=== PATIENT | female | born 1955 | race Caucasian/White ===

== ENCOUNTER 2018-05-07 10:18 | Emergency (ER) | payer MEDICARE, MEDICAID ==
[~2018-05-07] VITALS: Ht 170.2 cm; Wt 61.4 kg
[~2018-05-07 10:18] MED LIST: ACET325C PO; CALC-729 PO; CRAN3875 PO; DOCU100C41 PO; DULR RC; LEVO25TA7 PO; MAGN400O6 PO; MULT-1085 PO; POLY17PO10 PO; RANI-366 PO; SIME125C77 PO; VITC500T PO; [UNRECOGNIZED DRUG - CODE] PO; [UNRECOGNIZED DRUG - CODE] PO
[2018-05-07] MEDS ORDERED: LIDOcaine 1%/PF 5ML 10 MG/ML VIAL ONE (14:09)
[2018-05-07] MEDS ORDERED: iohexol 300 MG/1 ML 50ml polymer ONE (14:09)
[2018-05-07 17:00] VITALS: BP 125/67
== END 2018-05-07 17:50 | disposition home or self-care (01) ==
LOC: ER 10:18
DX: K94.29 Other complications of gastrostomy (principal); F12.90 Cannabis use, unspecified, uncomplicated; Z98.890 Other specified postprocedural states; Z88.0 Allergy status to penicillin; Z79.899 Other long term (current) drug therapy
CPT/HCPCS: 49450; 99284; A6449; B4088; C1729; J2001; Q9967

== ENCOUNTER 2018-05-11 12:45 | Inpatient (IN) | payer MEDICARE, MEDICAID ==
[~2018-05-11] VITALS: Ht 162.6 cm; Wt 59.1 kg
[2018-05-11 13:59] LABS: BASOPHILS # (AUTO) 0.1 X10'3 (0-0.2); BASOPHILS % (AUTO) 0.6 % (0-1); EOSINOPHILS # (AUTO) 0.3 X10'3 (0-0.9); EOSINOPHILS % (AUTO) 2.8 % (0-6); HEMATOCRIT 27.3 % (35.0-45.0); HEMOGLOBIN 9.2 g/dl (12.0-16.0); LYMPHOCYTES # (AUTO) 1.5 X10'3 (1.1-4.8); LYMPHOCYTES % (AUTO) 14.8 % (21-51); MEAN CORPUSCULAR HEMOGLOBIN 30.6 PG (27.0-31.0); MEAN CORPUSCULAR HGB CONC 33.7 % (33.0-36.5); MEAN PLATELET VOLUME 7.1 FL (7.4-10.4); MONOCYTES # (AUTO) 0.7 X10'3 (0-0.9); MONOCYTES % (AUTO) 6.4 % (2-12); NEUTROPHILS # (AUTO) 7.7 X10'3 (1.8-7.7); NEUTROPHILS % (AUTO) 75.4 % (42-75); PLATELET COUNT 244 X10'3 (140-440); RED CELL DISTRIBUTION WIDTH 16.9 % (11.5-14.5); WHITE BLOOD COUNT 10.2 X10'3 (4.5-11.0)
[2018-05-11 14:09] LABS: INR 1.1 INR; PARTIAL THROMBOPLASTIN TIME 31 SECONDS (22-32); PROTHROMBIN TIME 11.7 SECONDS (9.0-12.0)
[2018-05-11 14:15] LABS: ALANINE AMINOTRANSFERASE 19 U/L (12-78); ALBUMIN 2.4 G/DL (3.4-5.0); ALBUMIN/GLOBULIN RATIO 0.5 (1.1-1.5); ALKALINE PHOSPHATASE 73 IU/L (46-116); ANION GAP 8 (8-16); ASPARTATE AMINO TRANSFERASE 14 U/L (10-37); BILIRUBIN,TOTAL 0.4 MG/DL (0.1-1.0); BLOOD UREA NITROGEN 41 MG/DL (7-18); BUN/CREATININE RATIO 18.6 (6.6-38.0); CALCIUM 9.6 MG/DL (8.5-10.1); CHLORIDE 104 MMOL/L (99-107); CREATININE 2.21 MG/DL (0.40-0.90); GLUCOSE 93 MG/DL (70-104); POTASSIUM 3.4 MMOL/L (3.5-5.1); SODIUM 137 MMOL/L (135-145); TOTAL CARBON DIOXIDE 24.9 MMOL/L (24-32); TOTAL PROTEIN 7.1 G/DL (6.4-8.2); eGFR 23 ML/MIN
[2018-05-11 14:47] LABS: CLARITY,URINE CLOUDY (Clear); COLOR,URINE BROWN (Yellow); GLUCOSE, URINE NEGATIVE (Neg); KETONES,URINE NEGATIVE (Neg); LEUKOCYTE ESTERASE ,URINE LARGE (Neg); NITRITES, URINE NEGATIVE (Neg); OCCULT BLOOD,URINE LARGE (Neg); PH,URINE 6.5 (4.8-8.0); PROTEIN,URINE >=300 mg/dl (Neg); UROBILINOGEN,URINE 0.2 E.U/dL (0.2-1.0)
[2018-05-11 14:49] LABS: UA COLLECTION TYPE FOLEY CATH
[2018-05-11 14:54] LABS: WBC,URINE TNTC /HPF (0-4)
[2018-05-11 14:55] LABS: BACTERIA,URINE 3+ /HPF (Neg); MUCUS STRANDS NONE SEEN /LPF (Neg); RBC,URINE TNTC /HPF (0-2); SQUAMOUS EPITHELIAL CELL,UR FEW /LPF (FEW)
[2018-05-11] MEDS ORDERED: levoFLOXACIN-Levaquin 750MG/D5 150 ML IV ONE (14:55)
[2018-05-11] MEDS ORDERED: normal saline 1000ML IV soln IVB ONE (15:05)
[2018-05-11] MEDS ORDERED: LEVO500T2 PO (15:07)
[2018-05-11] MEDS ORDERED: ondansetron/PF 4mg/2ml inj IV PRN (22:25)
[2018-05-11] MEDS ORDERED: potassium Cl 20 mEq SR tablet PO PRN ×2 (22:25)
[2018-05-11] MEDS ORDERED: magnesium 1gm/100ml D5W IVPB 100 ML IV PRN (22:25)
[2018-05-11] MEDS ORDERED: potassium Cl 40MEQ/NS 500ml 500 ML IV PRN ×2 (22:25)
[2018-05-11] MEDS ORDERED: magnesium 4gm in 100ml NS 100 ML IV PRN (22:25)
[2018-05-11] MEDS ORDERED: acetaminophen 650mg rectal suppository RC PRN (22:25)
[2018-05-11] MEDS ORDERED: magnesium Cl slow-release 64mg tablet PO PRN (22:25)
[2018-05-12 00:26] VITALS: BP 120/55
[2018-05-12] MEDS: normal saline 1000ml 1,000 ML IV SCH ×3 (00:43→15:23)
[2018-05-12] MEDS ORDERED: potassium Cl 40MEQ/NS 500ml 500 ML IV ONE (01:00)
[2018-05-12 06:00] VITALS: BP 113/58
[2018-05-12 06:34] LABS: BASOPHILS % (AUTO) 0.2 % (0-1); EOSINOPHILS # (AUTO) 0.2 X10'3 (0-0.9); EOSINOPHILS % (AUTO) 2.3 % (0-6); HEMATOCRIT 25.1 % (35.0-45.0); HEMOGLOBIN 8.6 g/dl (12.0-16.0); LYMPHOCYTES # (AUTO) 0.7 X10'3 (1.1-4.8); LYMPHOCYTES % (AUTO) 7.7 % (21-51); MEAN CORPUSCULAR HGB CONC 34.1 % (33.0-36.5); MEAN CORPUSCULAR VOLUME 90.8 FL (78-98); MONOCYTES # (AUTO) 0.5 X10'3 (0-0.9); MONOCYTES % (AUTO) 5.3 % (2-12); NEUTROPHILS # (AUTO) 7.8 X10'3 (1.8-7.7); NEUTROPHILS % (AUTO) 84.5 % (42-75); PLATELET COUNT 209 X10'3 (140-440); RED BLOOD COUNT 2.77 X10'6 (4.20-5.60); RED CELL DISTRIBUTION WIDTH 16.2 % (11.5-14.5); WHITE BLOOD COUNT 9.2 X10'3 (4.5-11.0)
[2018-05-12 06:53] LABS: ALBUMIN 2.1 G/DL (3.4-5.0); ANION GAP 10 (8-16); BLOOD UREA NITROGEN 37 MG/DL (7-18); BUN/CREATININE RATIO 19.6 (6.6-38.0); CALCIUM 9.2 MG/DL (8.5-10.1); CHLORIDE 110 MMOL/L (99-107); CREATININE 1.89 MG/DL (0.40-0.90); GLUCOSE 79 MG/DL (70-104); MAGNESIUM 2.3 MG/DL (1.5-2.4); POTASSIUM 4.3 MMOL/L (3.5-5.1); SODIUM 140 MMOL/L (135-145); TOTAL CARBON DIOXIDE 20.3 MMOL/L (24-32); eGFR 27 ML/MIN
[2018-05-12] MEDS: K and/or MAG REPLACEMENT MC SCH (07:23)
[2018-05-12] MEDS ORDERED: levoFLOXACIN-Levaquin 500mg/D5 100 ML IV SCH (08:00)
[2018-05-12] MEDS ORDERED: iohexol 300 MG/1 ML 50ml polymer ONE (09:30)
[2018-05-12] MEDS ORDERED: LIDOcaine 1%/PF 5ML 10 MG/ML VIAL ONE (09:30)
[2018-05-12] MEDS ORDERED: fentaNYL/PF 50MCG/1 ML 2ML syringe ONE (09:45)
[2018-05-12 11:02] VITALS: BP 133/52
[2018-05-12] MEDS ORDERED: fentaNYL/PF 50MCG/1 ML 2ML syringe IV PRN (11:15)
[2018-05-12] MEDS: CefTRIAXone/D5W-Rocephin 1gm 50 ML IV SCH (16:02)
[2018-05-12 18:00] VITALS: BP 112/60
[2018-05-12 22:30] VITALS: BP 135/62
[2018-05-13] MEDS: normal saline 1000ml 1,000 ML IV SCH ×2 (04:23→12:31)
[2018-05-13 05:00] VITALS: BP 110/50
[2018-05-13 06:56] LABS: BASOPHILS % (AUTO) 0 % (0-1); EOSINOPHILS # (AUTO) 0.3 X10'3 (0-0.9); EOSINOPHILS % (AUTO) 3.3 % (0-6); HEMATOCRIT 22.4 % (35.0-45.0); HEMOGLOBIN 7.6 g/dl (12.0-16.0); LYMPHOCYTES # (AUTO) 1.1 X10'3 (1.1-4.8); LYMPHOCYTES % (AUTO) 14.4 % (21-51); MEAN CORPUSCULAR HEMOGLOBIN 30.6 PG (27.0-31.0); MEAN CORPUSCULAR VOLUME 89.9 FL (78-98); MEAN PLATELET VOLUME 6.7 FL (7.4-10.4); MONOCYTES # (AUTO) 0.4 X10'3 (0-0.9); NEUTROPHILS # (AUTO) 5.9 X10'3 (1.8-7.7); NEUTROPHILS % (AUTO) 77.3 % (42-75); PLATELET COUNT 222 X10'3 (140-440); RED BLOOD COUNT 2.49 X10'6 (4.20-5.60); WHITE BLOOD COUNT 7.6 X10'3 (4.5-11.0)
[2018-05-13 07:19] LABS: ANION GAP 16 (8-16); BLOOD UREA NITROGEN 29 MG/DL (7-18); BUN/CREATININE RATIO 16.6 (6.6-38.0); CALCIUM 8.9 MG/DL (8.5-10.1); CHLORIDE 116 MMOL/L (99-107); CREATININE 1.75 MG/DL (0.40-0.90); GLUCOSE 72 MG/DL (70-104); MAGNESIUM 1.9 MG/DL (1.5-2.4); POTASSIUM 3.5 MMOL/L (3.5-5.1); SODIUM 148 MMOL/L (135-145); TOTAL CARBON DIOXIDE 16.2 MMOL/L (24-32); eGFR 30 ML/MIN
[2018-05-13] MEDS: K and/or MAG REPLACEMENT MC SCH (08:14)
[2018-05-13] MEDS: CefTRIAXone/D5W-Rocephin 1gm 50 ML IV SCH (08:21)
[2018-05-13] MEDS ORDERED: FAMO-128 PO (11:07)
[2018-05-13 11:11] LABS: C DIFF SPECIMEN=DIARRHEA? ACCEPTABLE; C DIFFICILE TOXINS A&B POSITIVE (Neg)
[2018-05-13 11:12] LABS: C DIFF ANTIGEN POSITIVE (NEGATIVE)
[2018-05-13 12:00] VITALS: BP 104/47
[2018-05-13 18:00] VITALS: BP 114/54
[2018-05-13] MEDS: vancomycin 125mg/5ml ORAL solution 5ml UD bottle PO SCH (18:15)
[2018-05-13 22:00] VITALS: BP 123/59
[2018-05-14] MEDS: normal saline 1000ml 1,000 ML IV SCH ×3 (00:35→19:15)
[2018-05-14] MEDS: vancomycin 125mg/5ml ORAL solution 5ml UD bottle PO SCH ×4 (01:30→19:14)
[2018-05-14 06:00] VITALS: BP 124/67
[2018-05-14 06:03] LABS: BASOPHILS % (AUTO) 0.5 % (0-1); EOSINOPHILS # (AUTO) 0.2 X10'3 (0-0.9); EOSINOPHILS % (AUTO) 3.6 % (0-6); HEMATOCRIT 22.4 % (35.0-45.0); HEMOGLOBIN 7.5 g/dl (12.0-16.0); LYMPHOCYTES # (AUTO) 0.8 X10'3 (1.1-4.8); MEAN CORPUSCULAR HEMOGLOBIN 30.4 PG (27.0-31.0); MEAN CORPUSCULAR HGB CONC 33.5 % (33.0-36.5); MEAN CORPUSCULAR VOLUME 90.8 FL (78-98); MEAN PLATELET VOLUME 6.9 FL (7.4-10.4); MONOCYTES # (AUTO) 0.3 X10'3 (0-0.9); MONOCYTES % (AUTO) 5.3 % (2-12); NEUTROPHILS # (AUTO) 4.7 X10'3 (1.8-7.7); NEUTROPHILS % (AUTO) 77.6 % (42-75); PLATELET COUNT 236 X10'3 (140-440); RED BLOOD COUNT 2.47 X10'6 (4.20-5.60); RED CELL DISTRIBUTION WIDTH 16.4 % (11.5-14.5)
[2018-05-14 06:17] LABS: ALBUMIN 1.8 G/DL (3.4-5.0); ANION GAP 10 (8-16); BLOOD UREA NITROGEN 25 MG/DL (7-18); BUN/CREATININE RATIO 16.9 (6.6-38.0); CALCIUM 8.5 MG/DL (8.5-10.1); CHLORIDE 119 MMOL/L (99-107); CREATININE 1.48 MG/DL (0.40-0.90); GLUCOSE 193 MG/DL (70-104); MAGNESIUM 1.7 MG/DL (1.5-2.4); POTASSIUM 3.1 MMOL/L (3.5-5.1); SODIUM 148 MMOL/L (135-145); TOTAL CARBON DIOXIDE 18.6 MMOL/L (24-32); eGFR 36 ML/MIN
[2018-05-14] MEDS: K and/or MAG REPLACEMENT MC SCH (08:00)
[2018-05-14] MEDS: CefTRIAXone/D5W-Rocephin 1gm 50 ML IV SCH (08:53)
[2018-05-14] MEDS: topiramate 100mg tablet PO SCH ×2 (09:12→19:14)
[2018-05-14 10:00] VITALS: BP 125/67
[2018-05-14 18:00] VITALS: BP 132/64
[2018-05-14] MEDS: lactobacillus rhamnosus 10,000 MMU CELLS/CAPSULE PO SCH (19:14)
[2018-05-14] MEDS: famotidine 20mg tablet PO SCH (19:14)
[2018-05-14 22:00] VITALS: BP 116/64
[2018-05-15] MEDS: vancomycin 125mg/5ml ORAL solution 5ml UD bottle PO SCH ×4 (02:01→21:37)
[2018-05-15 06:00] VITALS: BP 122/65
[2018-05-15 07:02] LABS: BASOPHILS % (AUTO) 0.3 % (0-1); EOSINOPHILS # (AUTO) 0.2 X10'3 (0-0.9); HEMATOCRIT 22.4 % (35.0-45.0); HEMOGLOBIN 7.5 g/dl (12.0-16.0); LYMPHOCYTES # (AUTO) 0.9 X10'3 (1.1-4.8); LYMPHOCYTES % (AUTO) 12.7 % (21-51); MEAN CORPUSCULAR HEMOGLOBIN 30.3 PG (27.0-31.0); MEAN CORPUSCULAR HGB CONC 33.4 % (33.0-36.5); MEAN CORPUSCULAR VOLUME 90.7 FL (78-98); MONOCYTES # (AUTO) 0.4 X10'3 (0-0.9); MONOCYTES % (AUTO) 5.8 % (2-12); NEUTROPHILS # (AUTO) 5.3 X10'3 (1.8-7.7); NEUTROPHILS % (AUTO) 78.2 % (42-75); PLATELET COUNT 213 X10'3 (140-440); RED BLOOD COUNT 2.47 X10'6 (4.20-5.60); WHITE BLOOD COUNT 6.8 X10'3 (4.5-11.0)
[2018-05-15 07:16] LABS: ALBUMIN 1.8 G/DL (3.4-5.0); ANION GAP 12 (8-16); BLOOD UREA NITROGEN 23 MG/DL (7-18); BUN/CREATININE RATIO 17.4 (6.6-38.0); CALCIUM 8.2 MG/DL (8.5-10.1); CHLORIDE 120 MMOL/L (99-107); CREATININE 1.32 MG/DL (0.40-0.90); GLUCOSE 128 MG/DL (70-104); MAGNESIUM 1.4 MG/DL (1.5-2.4); POTASSIUM 3.6 MMOL/L (3.5-5.1); PREALBUMIN 13.4 MG/DL (19-36); SODIUM 149 MMOL/L (135-145); eGFR 41 ML/MIN
[2018-05-15] MEDS: normal saline 1000ml 1,000 ML IV SCH ×2 (07:16→21:38)
[2018-05-15] MEDS: lactobacillus rhamnosus 10,000 MMU CELLS/CAPSULE PO SCH ×2 (07:17→21:37)
[2018-05-15] MEDS: topiramate 100mg tablet PO SCH ×2 (07:17→21:37)
[2018-05-15] MEDS: CefTRIAXone/D5W-Rocephin 1gm 50 ML IV SCH (07:17)
[2018-05-15] MEDS: famotidine 20mg tablet PO SCH ×2 (07:17→21:37)
[2018-05-15] MEDS: levoTHYROXINE 25mcg tablet PO SCH (07:17)
[2018-05-15] MEDS: multivitamins, therapeutics tablet PO SCH (07:40)
[2018-05-15] MEDS: K and/or MAG REPLACEMENT MC SCH (08:00)
[2018-05-15] MEDS ORDERED: potassium Cl 40MEQ/NS 500ml 500 ML IV PRN ×2 (10:20)
[2018-05-15] MEDS ORDERED: potassium Cl 20 mEq SR tablet PO PRN ×2 (10:20)
[2018-05-15] MEDS ORDERED: magnesium 4gm in 100ml NS 100 ML IV PRN (10:20)
[2018-05-15] MEDS: magnesium 1gm/100ml D5W IVPB 100 ML IV PRN ×2 (13:58→17:06)
[2018-05-15 18:00] VITALS: BP 132/58
[2018-05-15 22:00] VITALS: BP 116/74
[2018-05-16] MEDS: normal saline 1000ml 1,000 ML IV SCH ×3 (02:21→22:21)
[2018-05-16] MEDS: vancomycin 125mg/5ml ORAL solution 5ml UD bottle PO SCH ×4 (02:42→19:42)
[2018-05-16 06:00] VITALS: BP 128/83
[2018-05-16 06:21] LABS: BASOPHILS % (AUTO) 0.3 % (0-1); EOSINOPHILS # (AUTO) 0.3 X10'3 (0-0.9); EOSINOPHILS % (AUTO) 3.3 % (0-6); HEMATOCRIT 23.2 % (35.0-45.0); HEMOGLOBIN 7.9 g/dl (12.0-16.0); LYMPHOCYTES % (AUTO) 12.4 % (21-51); MEAN CORPUSCULAR HGB CONC 34.3 % (33.0-36.5); MEAN CORPUSCULAR VOLUME 90.3 FL (78-98); MEAN PLATELET VOLUME 6.6 FL (7.4-10.4); MONOCYTES # (AUTO) 0.5 X10'3 (0-0.9); MONOCYTES % (AUTO) 5.9 % (2-12); NEUTROPHILS # (AUTO) 6.1 X10'3 (1.8-7.7); NEUTROPHILS % (AUTO) 78.1 % (42-75); PLATELET COUNT 216 X10'3 (140-440); RED BLOOD COUNT 2.57 X10'6 (4.20-5.60); RED CELL DISTRIBUTION WIDTH 16.1 % (11.5-14.5); WHITE BLOOD COUNT 7.8 X10'3 (4.5-11.0)
[2018-05-16 06:34] LABS: ALBUMIN 1.6 G/DL (3.4-5.0); ANION GAP 10 (8-16); BLOOD UREA NITROGEN 20 MG/DL (7-18); BUN/CREATININE RATIO 18.3 (6.6-38.0); CALCIUM 7.6 MG/DL (8.5-10.1); CHLORIDE 116 MMOL/L (99-107); CREATININE 1.09 MG/DL (0.40-0.90); GLUCOSE 131 MG/DL (70-104); MAGNESIUM 2.7 MG/DL (1.5-2.4); POTASSIUM 3.6 MMOL/L (3.5-5.1); SODIUM 144 MMOL/L (135-145); eGFR 51 ML/MIN
[2018-05-16] MEDS: K and/or MAG REPLACEMENT MC SCH (07:27)
[2018-05-16] MEDS: famotidine 20mg tablet PO SCH ×2 (08:24→19:41)
[2018-05-16] MEDS: lactobacillus rhamnosus 10,000 MMU CELLS/CAPSULE PO SCH ×2 (08:24→19:41)
[2018-05-16] MEDS: multivitamins, therapeutics tablet PO SCH (08:24)
[2018-05-16] MEDS: levoTHYROXINE 25mcg tablet PO SCH (08:24)
[2018-05-16] MEDS: topiramate 100mg tablet PO SCH ×2 (08:24→19:42)
[2018-05-16] MEDS: CefTRIAXone/D5W-Rocephin 1gm 50 ML IV SCH (08:25)
[2018-05-16 10:00] VITALS: BP 131/63
[2018-05-16 18:00] VITALS: BP 131/68
[2018-05-17] VITALS: BP 103/61
[2018-05-17] MEDS: normal saline 1000ml 1,000 ML IV SCH ×2 (01:40→20:10)
[2018-05-17] MEDS: vancomycin 125mg/5ml ORAL solution 5ml UD bottle PO SCH ×4 (01:40→20:05)
[2018-05-17 06:00] VITALS: BP 119/65
[2018-05-17 06:48] LABS: MAGNESIUM 1.9 MG/DL (1.5-2.4); POTASSIUM 3.8 MMOL/L (3.5-5.1)
[2018-05-17] MEDS: K and/or MAG REPLACEMENT MC SCH (08:00)
[2018-05-17] MEDS: CefTRIAXone/D5W-Rocephin 1gm 50 ML IV SCH (08:00)
[2018-05-17] MEDS ORDERED: cefTRIAXone 1g/NS 100ml IVPB 100 ML IV ONE (09:35)
[2018-05-17] MEDS: famotidine 20mg tablet PO SCH ×2 (09:40→20:05)
[2018-05-17] MEDS: lactobacillus rhamnosus 10,000 MMU CELLS/CAPSULE PO SCH ×2 (09:40→20:05)
[2018-05-17] MEDS: levoTHYROXINE 25mcg tablet PO SCH (09:41)
[2018-05-17] MEDS: topiramate 100mg tablet PO SCH ×2 (09:41→20:05)
[2018-05-17] MEDS: multivitamins, therapeutics tablet PO SCH (09:41)
[2018-05-17 10:00] VITALS: BP 135/48
[2018-05-17 18:00] VITALS: BP 125/58
[2018-05-17 22:00] VITALS: BP 121/60
[2018-05-18] MEDS: vancomycin 125mg/5ml ORAL solution 5ml UD bottle PO SCH ×4 (02:25→20:26)
[2018-05-18 06:00] VITALS: BP 125/67
[2018-05-18 06:37] LABS: BASOPHILS % (AUTO) 0.3 % (0-1); EOSINOPHILS # (AUTO) 0.3 X10'3 (0-0.9); EOSINOPHILS % (AUTO) 4.7 % (0-6); HEMATOCRIT 24.6 % (35.0-45.0); HEMOGLOBIN 8.3 g/dl (12.0-16.0); LYMPHOCYTES # (AUTO) 1.1 X10'3 (1.1-4.8); LYMPHOCYTES % (AUTO) 16.1 % (21-51); MEAN CORPUSCULAR HEMOGLOBIN 30.5 PG (27.0-31.0); MEAN CORPUSCULAR HGB CONC 33.7 % (33.0-36.5); MEAN CORPUSCULAR VOLUME 90.7 FL (78-98); MEAN PLATELET VOLUME 7.2 FL (7.4-10.4); MONOCYTES # (AUTO) 0.3 X10'3 (0-0.9); MONOCYTES % (AUTO) 4.9 % (2-12); NEUTROPHILS # (AUTO) 4.9 X10'3 (1.8-7.7); PLATELET COUNT 222 X10'3 (140-440); RED BLOOD COUNT 2.71 X10'6 (4.20-5.60); RED CELL DISTRIBUTION WIDTH 16.3 % (11.5-14.5); WHITE BLOOD COUNT 6.6 X10'3 (4.5-11.0)
[2018-05-18 06:48] LABS: ALBUMIN 1.6 G/DL (3.4-5.0); ANION GAP 9 (8-16); BLOOD UREA NITROGEN 22 MG/DL (7-18); BUN/CREATININE RATIO 20.4 (6.6-38.0); CALCIUM 8.7 MG/DL (8.5-10.1); CHLORIDE 116 MMOL/L (99-107); CREATININE 1.08 MG/DL (0.40-0.90); GLUCOSE 107 MG/DL (70-104); POTASSIUM 3.9 MMOL/L (3.5-5.1); SODIUM 143 MMOL/L (135-145); TOTAL CARBON DIOXIDE 17.6 MMOL/L (24-32); eGFR 52 ML/MIN
[2018-05-18] MEDS: K and/or MAG REPLACEMENT MC SCH (08:00)
[2018-05-18 10:00] VITALS: BP 130/72
[2018-05-18] MEDS: levoTHYROXINE 25mcg tablet PO SCH (10:02)
[2018-05-18] MEDS: cefTRIAXone 1g/NS 100ml IVPB 100 ML IV SCH (10:02)
[2018-05-18] MEDS: topiramate 100mg tablet PO SCH ×2 (10:02→20:26)
[2018-05-18] MEDS: lactobacillus rhamnosus 10,000 MMU CELLS/CAPSULE PO SCH ×2 (10:03→20:26)
[2018-05-18] MEDS: famotidine 20mg tablet PO SCH ×2 (10:03→20:26)
[2018-05-18] MEDS: multivitamins, therapeutics tablet PO SCH (10:03)
[2018-05-18 19:18] VITALS: BP 151/74
[2018-05-18 22:00] VITALS: BP 126/61
[2018-05-19] MEDS: vancomycin 125mg/5ml ORAL solution 5ml UD bottle PO SCH ×3 (02:03→14:43)
[2018-05-19 05:00] VITALS: BP 105/58
[2018-05-19] MEDS: K and/or MAG REPLACEMENT MC SCH (07:04)
[2018-05-19] MEDS: cefTRIAXone 1g/NS 100ml IVPB 100 ML IV SCH (08:31)
[2018-05-19] MEDS: famotidine 20mg tablet PO SCH (08:32)
[2018-05-19] MEDS: topiramate 100mg tablet PO SCH (08:32)
[2018-05-19] MEDS: lactobacillus rhamnosus 10,000 MMU CELLS/CAPSULE PO SCH (08:32)
[2018-05-19] MEDS: levoTHYROXINE 25mcg tablet PO SCH (08:32)
[2018-05-19] MEDS: multivitamins, therapeutics tablet PO SCH (08:32)
[2018-05-19 10:00] VITALS: BP 134/75
== END 2018-05-19 16:21 | DRG 698 ==
LOC: ER 12:45 → ORTHO 4S 22:21 → EDBEDREQTM 22:51 → ORTHO 4S 05-13 04:36
PROVIDERS: ADMIT Internal Medicine; ATTEND Family Medicine
PROC: 0T25X0Z Change Drainage Device in Kidney, External Approach (ICD-10-PCS; principal; 2018-05-12)
DX: T83.022A Displacement of nephrostomy catheter, initial encounter (principal); E43 Unspecified severe protein-calorie malnutrition; G93.49 Other encephalopathy; A04.72 Enterocolitis due to Clostridium difficile, not specified as recurrent; N17.9 Acute kidney failure, unspecified; N39.0 Urinary tract infection, site not specified; N13.6 Pyonephrosis; G35 Multiple sclerosis; B96.20 Unspecified Escherichia coli [E. coli] as the cause of diseases classified elsewhere; E03.9 Hypothyroidism, unspecified; G40.909 Epilepsy, unspecified, not intractable, without status epilepticus; D64.9 Anemia, unspecified; L89.90 Pressure ulcer of unspecified site, unspecified stage; E87.6 Hypokalemia; Z16.23 Resistance to quinolones and fluoroquinolones; F32.9 Major depressive disorder, single episode, unspecified; F12.90 Cannabis use, unspecified, uncomplicated; Y84.6 Urinary catheterization as the cause of abnormal reaction of the patient, or of later complication, without mention of misadventure at the time of the procedure; Z66 Do not resuscitate; N18.9 Chronic kidney disease, unspecified; Z74.01 Bed confinement status; Z88.0 Allergy status to penicillin; Z79.890 Hormone replacement therapy; Z79.899 Other long term (current) drug therapy; Z86.61 Personal history of infections of the central nervous system; Y92.89 Other specified places as the place of occurrence of the external cause
CPT/HCPCS: 36415; 50435; 71045; 74176; 80048; 80053; 81001; 82948; 83605; 83735; 84132; 84134; 84145; 85025; 85610; 85730; 87040; 87070; 87077; 87088; 87186; 87324; 87449; 96365; 99285; A4315; A4333; A4620; A6209; A6251; A6255; A6257; A6258; A6449; C1769; J0696; J1956; J2001; J3010; J3475; J3480; J7030; Q9967

== ENCOUNTER 2018-06-07 00:12 | Inpatient (IN) | payer MEDICARE, MEDICAID ==
[~2018-06-07] VITALS: Ht 157.9 cm; Wt 45.0 kg
[~2018-06-07 00:12] MED LIST changes: +FAMO-128 PO; -RANI-366 PO
[2018-06-07] MEDS ORDERED: normal saline 1000ML IV soln IVB ONE (00:40)
[2018-06-07 01:38] LABS: INR 1.1 INR; PARTIAL THROMBOPLASTIN TIME 30 SECONDS (22-32); PROTHROMBIN TIME 11.4 SECONDS (9.0-12.0)
[2018-06-07 01:41] LABS: ALANINE AMINOTRANSFERASE 20 U/L (12-78); ALBUMIN 2.2 G/DL (3.4-5.0); ALBUMIN/GLOBULIN RATIO 0.6 (1.1-1.5); ALKALINE PHOSPHATASE 84 IU/L (46-116); ANION GAP 10 (8-16); ASPARTATE AMINO TRANSFERASE 11 U/L (10-37); BILIRUBIN,TOTAL 0.3 MG/DL (0.1-1.0); BLOOD UREA NITROGEN 30 MG/DL (7-18); BUN/CREATININE RATIO 21.3 (6.6-38.0); CALCIUM 7.9 MG/DL (8.5-10.1); CHLORIDE 108 MMOL/L (99-107); CREATININE 1.41 MG/DL (0.40-0.90); GLUCOSE 143 MG/DL (70-104); POTASSIUM 3.7 MMOL/L (3.5-5.1); SODIUM 140 MMOL/L (135-145); TOTAL CARBON DIOXIDE 21.8 MMOL/L (24-32); TOTAL PROTEIN 6.2 G/DL (6.4-8.2); eGFR 38 ML/MIN
[2018-06-07 01:44] LABS: CLARITY,URINE CLOUDY (Clear); COLOR,URINE YELLOW (Yellow); GLUCOSE, URINE NEGATIVE (Neg); KETONES,URINE NEGATIVE (Neg); LEUKOCYTE ESTERASE ,URINE LARGE (Neg); NITRITES, URINE NEGATIVE (Neg); OCCULT BLOOD,URINE LARGE (Neg); PROTEIN,URINE 100 mg/dl (Neg); UROBILINOGEN,URINE 0.2 E.U/dL (0.2-1.0)
[2018-06-07 01:48] LABS: UA COLLECTION TYPE FOLEY CATH
[2018-06-07 01:49] LABS: BACTERIA,URINE FEW /HPF (Neg); RBC,URINE 50-100 /HPF (0-2); SQUAMOUS EPITHELIAL CELL,UR FEW /LPF (FEW); WBC CLUMPS,URINE FEW /HPF (NEGATIVE); WBC,URINE 30-50 /HPF (0-4)
[2018-06-07 01:49] LABS: BASOPHILS % (AUTO) 0.2 % (0-1); EOSINOPHILS # (AUTO) 0.1 X10'3 (0-0.9); EOSINOPHILS % (AUTO) 1.2 % (0-6); HEMATOCRIT 25.9 % (35.0-45.0); HEMOGLOBIN 8.5 g/dl (12.0-16.0); LYMPHOCYTES # (AUTO) 0.7 X10'3 (1.1-4.8); LYMPHOCYTES % (AUTO) 6.1 % (21-51); MEAN CORPUSCULAR HEMOGLOBIN 29.2 PG (27.0-31.0); MEAN CORPUSCULAR HGB CONC 32.8 % (33.0-36.5); MEAN CORPUSCULAR VOLUME 89.1 FL (78-98); MEAN PLATELET VOLUME 7.8 FL (7.4-10.4); MONOCYTES # (AUTO) 0.7 X10'3 (0-0.9); MONOCYTES % (AUTO) 6.2 % (2-12); NEUTROPHILS # (AUTO) 9.4 X10'3 (1.8-7.7); NEUTROPHILS % (AUTO) 86.3 % (42-75); PLATELET COUNT 208 X10'3 (140-440); RED BLOOD COUNT 2.91 X10'6 (4.20-5.60); RED CELL DISTRIBUTION WIDTH 15.6 % (11.5-14.5); WHITE BLOOD COUNT 10.9 X10'3 (4.5-11.0)
[2018-06-07] MEDS ORDERED: CefTRIAXone 2gm/D5W 50ml 50 ML IV ONE (01:55)
[2018-06-07] MEDS ORDERED: levoFLOXACIN-Levaquin 500mg/D5 100 ML IV ONE (03:30)
[2018-06-07] MEDS ORDERED: simethicone 80mg chew tab PO PRN (04:45)
[2018-06-07] MEDS ORDERED: magnesium hydroxide 30ml (MOM) UD suspension PO PRN ×2 (04:45→05:15)
[2018-06-07] MEDS ORDERED: acetaminophen 325mg tablet PO PRN ×3 (04:45→05:15)
[2018-06-07] MEDS ORDERED: potassium Cl 20 mEq SR tablet PO PRN ×2 (05:15)
[2018-06-07] MEDS ORDERED: magnesium 1gm/100ml D5W IVPB 100 ML IV PRN (05:15)
[2018-06-07] MEDS ORDERED: magnesium 4gm in 100ml NS 100 ML IV PRN (05:15)
[2018-06-07] MEDS ORDERED: ipratropium/albuterol 3ml nebule NEB PRN (05:15)
[2018-06-07] MEDS ORDERED: potassium Cl 40MEQ/NS 500ml 500 ML IV PRN ×2 (05:15)
[2018-06-07] MEDS ORDERED: HYDROcodone/acetaminophen 5mg/325mg tablet PO PRN (05:15)
[2018-06-07] MEDS ORDERED: HYDROcodone/acetaminophen 10/325mg tab PO PRN (05:15)
[2018-06-07] MEDS ORDERED: ondansetron/PF 4mg/2ml inj IV PRN (05:15)
[2018-06-07] MEDS ORDERED: vancomycin/NS 1 GM ADD-VANTAGE 250 ML IV ONE (05:15)
[2018-06-07] MEDS ORDERED: mag hydrox/Alum hydrox/simeth 30ml oral suspension PO PRN (05:15)
[2018-06-07] MEDS: normal saline 1000ml 1,000 ML IV SCH ×2 (05:58→17:22)
[2018-06-07] MEDS: K and/or MAG REPLACEMENT MC SCH (07:05)
[2018-06-07] MEDS ORDERED: calcium carbonate/vitamin D3 tablet PO SCH (08:00)
[2018-06-07] MEDS ORDERED: BROMELN PO SCH (08:00)
[2018-06-07] MEDS ORDERED: levoTHYROXINE 25mcg tablet PO SCH (08:00)
[2018-06-07] MEDS ORDERED: topiramate 100mg tablet PO SCH (08:00)
[2018-06-07] MEDS ORDERED: FOS PO SCH (08:00)
[2018-06-07] MEDS ORDERED: ascorbic acid 500mg tablet PO SCH (08:00)
[2018-06-07] MEDS ORDERED: famotidine 20mg tablet PO SCH (08:00)
[2018-06-07] MEDS ORDERED: VITC PO SCH (08:00)
[2018-06-07] MEDS ORDERED: CRAN PO SCH (08:00)
[2018-06-07] MEDS ORDERED: multivitamins, therapeutics tablet PO SCH (08:00)
[2018-06-07] MEDS ORDERED: docusate sod 100mg capsule PO SCH (08:00)
[2018-06-07] MEDS ORDERED: MANNOSE PO SCH (08:00)
[2018-06-07] MEDS ORDERED: ferrous sulfate 325mg tablet PO SCH (08:00)
[2018-06-07 13:00] VITALS: BP 94/49
[2018-06-07] MEDS ORDERED: docusate sodium 100mg/10ml UD cup PO SCH (17:03)
[2018-06-07] MEDS ORDERED: ferrous sulfate 300mg/5ml UD oral liquid PO SCH (17:04)
[2018-06-07] MEDS ORDERED: ferrous sulfate 300mg/5ml UD oral liquid PEG SCH (17:04)
[2018-06-07] MEDS ORDERED: simethicone 80mg chew tab PEG PRN (17:06)
[2018-06-07 18:00] VITALS: BP 106/56
[2018-06-07] MEDS: calcium carbonate/vitamin D3 tablet PEG SCH (20:00)
[2018-06-07] MEDS: topiramate 100mg tablet PEG SCH (20:03)
[2018-06-07] MEDS: famotidine 20mg tablet PEG SCH (20:03)
[2018-06-07] MEDS: ferrous sulfate 300mg/5ml UD oral liquid PEG SCH (20:03)
[2018-06-07] MEDS: nystatin 15 GM powder TP SCH (20:04)
[2018-06-07 21:53] VITALS: BP 90/40
[2018-06-08] MEDS: vancomycin 125mg/5ml ORAL solution 5ml UD bottle PEG SCH ×4 (01:56→19:54)
[2018-06-08] MEDS: CefTRIAXone/D5W-Rocephin 1gm 50 ML IV SCH (01:56)
[2018-06-08] MEDS: normal saline 1000ml 1,000 ML IV SCH (02:00)
[2018-06-08 05:19] LABS: BASOPHILS % (AUTO) 0.3 % (0-1); EOSINOPHILS # (AUTO) 0.3 X10'3 (0-0.9); EOSINOPHILS % (AUTO) 3.1 % (0-6); HEMOGLOBIN 7.3 g/dl (12.0-16.0); LYMPHOCYTES # (AUTO) 1.1 X10'3 (1.1-4.8); LYMPHOCYTES % (AUTO) 13.9 % (21-51); MEAN CORPUSCULAR HEMOGLOBIN 29.3 PG (27.0-31.0); MEAN CORPUSCULAR HGB CONC 33.4 % (33.0-36.5); MEAN CORPUSCULAR VOLUME 87.9 FL (78-98); MEAN PLATELET VOLUME 7.2 FL (7.4-10.4); MONOCYTES # (AUTO) 0.5 X10'3 (0-0.9); MONOCYTES % (AUTO) 5.6 % (2-12); NEUTROPHILS # (AUTO) 6.2 X10'3 (1.8-7.7); NEUTROPHILS % (AUTO) 77.1 % (42-75); PLATELET COUNT 161 X10'3 (140-440); RED BLOOD COUNT 2.49 X10'6 (4.20-5.60); RED CELL DISTRIBUTION WIDTH 15.3 % (11.5-14.5); WHITE BLOOD COUNT 8.1 X10'3 (4.5-11.0)
[2018-06-08 05:25] LABS: HEMATOCRIT 21.9 % (35.0-45.0)
[2018-06-08 06:26] LABS: ALANINE AMINOTRANSFERASE 15 U/L (12-78); ALBUMIN 1.9 G/DL (3.4-5.0); ALBUMIN/GLOBULIN RATIO 0.5 (1.1-1.5); ALKALINE PHOSPHATASE 72 IU/L (46-116); ANION GAP 13 (8-16); ASPARTATE AMINO TRANSFERASE 15 U/L (10-37); BILIRUBIN,TOTAL 0.2 MG/DL (0.1-1.0); BLOOD UREA NITROGEN 21 MG/DL (7-18); BUN/CREATININE RATIO 16.8 (6.6-38.0); CALCIUM 8.4 MG/DL (8.5-10.1); CHLORIDE 113 MMOL/L (99-107); CREATININE 1.25 MG/DL (0.40-0.90); GLUCOSE 77 MG/DL (70-104); MAGNESIUM 1.8 MG/DL (1.5-2.4); POTASSIUM 3.4 MMOL/L (3.5-5.1); SODIUM 144 MMOL/L (135-145); TOTAL CARBON DIOXIDE 18.4 MMOL/L (24-32); TOTAL PROTEIN 5.6 G/DL (6.4-8.2); eGFR 44 ML/MIN
[2018-06-08 07:14] VITALS: BP 98/51
[2018-06-08] MEDS: K and/or MAG REPLACEMENT MC SCH (07:22)
[2018-06-08] MEDS: multivitamin oral liquid (Certavite) 5ml cup PEG SCH (07:51)
[2018-06-08] MEDS: vancomycin/NS 1 GM ADD-VANTAGE 250 ML IV SCH (07:51)
[2018-06-08] MEDS: topiramate 100mg tablet PEG SCH ×2 (07:52→19:54)
[2018-06-08] MEDS: levoTHYROXINE 25mcg tablet PEG SCH (07:52)
[2018-06-08] MEDS: ferrous sulfate 300mg/5ml UD oral liquid PEG SCH ×2 (07:52→19:54)
[2018-06-08] MEDS: famotidine 20mg tablet PEG SCH ×2 (07:52→19:54)
[2018-06-08] MEDS: nystatin 15 GM powder TP SCH ×3 (07:52→19:54)
[2018-06-08] MEDS: ascorbic acid 500mg tablet PEG SCH (07:52)
[2018-06-08] MEDS: docusate sodium 100mg/10ml UD cup PEG SCH (07:53)
[2018-06-08] MEDS: calcium carbonate/vitamin D3 tablet PEG SCH ×2 (07:53→19:54)
[2018-06-08 10:00] VITALS: BP 122/60
[2018-06-08] MEDS ORDERED: potassium Cl oral solution 20 MEQ/15 ML PO PRN (10:44)
[2018-06-08] MEDS: potassium Cl oral solution 20 MEQ/15 ML PO PRN (17:02)
[2018-06-08 18:00] VITALS: BP 131/62
[2018-06-08 22:00] VITALS: BP 131/69
[2018-06-09] MEDS: potassium Cl oral solution 20 MEQ/15 ML PO PRN ×2 (01:20→07:57)
[2018-06-09] MEDS: CefTRIAXone/D5W-Rocephin 1gm 50 ML IV SCH (01:20)
[2018-06-09] MEDS: vancomycin 125mg/5ml ORAL solution 5ml UD bottle PEG SCH ×3 (02:20→14:13)
[2018-06-09 06:24] LABS: BASOPHILS % (AUTO) 0.3 % (0-1); EOSINOPHILS # (AUTO) 0.3 X10'3 (0-0.9); EOSINOPHILS % (AUTO) 3.1 % (0-6); HEMOGLOBIN 8.4 g/dl (12.0-16.0); LYMPHOCYTES % (AUTO) 11.2 % (21-51); MEAN CORPUSCULAR HEMOGLOBIN 29.4 PG (27.0-31.0); MEAN CORPUSCULAR HGB CONC 33.4 % (33.0-36.5); MEAN CORPUSCULAR VOLUME 87.8 FL (78-98); MEAN PLATELET VOLUME 7.6 FL (7.4-10.4); MONOCYTES # (AUTO) 0.6 X10'3 (0-0.9); MONOCYTES % (AUTO) 6.2 % (2-12); NEUTROPHILS # (AUTO) 7.3 X10'3 (1.8-7.7); NEUTROPHILS % (AUTO) 79.2 % (42-75); PLATELET COUNT 186 X10'3 (140-440); RED BLOOD COUNT 2.85 X10'6 (4.20-5.60); RED CELL DISTRIBUTION WIDTH 15.4 % (11.5-14.5); WHITE BLOOD COUNT 9.2 X10'3 (4.5-11.0)
[2018-06-09 06:51] LABS: ALANINE AMINOTRANSFERASE 20 U/L (12-78); ALBUMIN/GLOBULIN RATIO 0.5 (1.1-1.5); ALKALINE PHOSPHATASE 79 IU/L (46-116); ANION GAP 11 (8-16); ASPARTATE AMINO TRANSFERASE 12 U/L (10-37); BILIRUBIN,TOTAL 0.2 MG/DL (0.1-1.0); BLOOD UREA NITROGEN 21 MG/DL (7-18); BUN/CREATININE RATIO 15.8 (6.6-38.0); CALCIUM 8.5 MG/DL (8.5-10.1); CHLORIDE 111 MMOL/L (99-107); CREATININE 1.33 MG/DL (0.40-0.90); GLUCOSE 117 MG/DL (70-104); MAGNESIUM 1.7 MG/DL (1.5-2.4); POTASSIUM 3.3 MMOL/L (3.5-5.1); PREALBUMIN 13.9 MG/DL (19-36); SODIUM 141 MMOL/L (135-145); TOTAL CARBON DIOXIDE 18.7 MMOL/L (24-32); eGFR 41 ML/MIN
[2018-06-09 07:10] VITALS: BP 126/72
[2018-06-09 07:51] LABS: C DIFFICILE TOXINS A&B POSITIVE (Neg)
[2018-06-09 07:52] LABS: C DIFF ANTIGEN POSITIVE (NEGATIVE); C DIFF SPECIMEN=DIARRHEA? ACCEPTABLE
[2018-06-09] MEDS: ferrous sulfate 300mg/5ml UD oral liquid PEG SCH (07:56)
[2018-06-09] MEDS: multivitamin oral liquid (Certavite) 5ml cup PEG SCH (07:56)
[2018-06-09] MEDS: famotidine 20mg tablet PEG SCH (07:57)
[2018-06-09] MEDS: topiramate 100mg tablet PEG SCH (07:57)
[2018-06-09] MEDS: ascorbic acid 500mg tablet PEG SCH (07:57)
[2018-06-09] MEDS: levoTHYROXINE 25mcg tablet PEG SCH (07:57)
[2018-06-09] MEDS: calcium carbonate/vitamin D3 tablet PEG SCH (07:57)
[2018-06-09] MEDS: nystatin 15 GM powder TP SCH ×2 (07:58→11:26)
[2018-06-09] MEDS: K and/or MAG REPLACEMENT MC SCH (07:58)
[2018-06-09] MEDS: docusate sodium 100mg/10ml UD cup PEG SCH (07:58)
[2018-06-09] MEDS: vancomycin/NS 1 GM ADD-VANTAGE 250 ML IV SCH (07:58)
[2018-06-09 11:08] VITALS: BP 121/51
[2018-06-09 11:09] VITALS: BP 96/54
[2018-06-10] MEDS ORDERED: VANCOMYCIN LEVEL IV ONE (07:30)
== END 2018-06-09 16:05 | DRG 871 ==
LOC: ER 00:12 → ED HOLD 05:14 → ORTHO 4S 12:55
PROVIDERS: ADMIT Family Medicine; ATTEND Family Medicine
DX: A41.9 Sepsis, unspecified organism (principal); J96.90 Respiratory failure, unspecified, unspecified whether with hypoxia or hypercapnia; N39.0 Urinary tract infection, site not specified; N17.9 Acute kidney failure, unspecified; A04.71 Enterocolitis due to Clostridium difficile, recurrent; E03.9 Hypothyroidism, unspecified; D63.8 Anemia in other chronic diseases classified elsewhere; B95.2 Enterococcus as the cause of diseases classified elsewhere; G35 Multiple sclerosis; N13.9 Obstructive and reflux uropathy, unspecified; N18.9 Chronic kidney disease, unspecified; F17.210 Nicotine dependence, cigarettes, uncomplicated; F12.90 Cannabis use, unspecified, uncomplicated; Z74.01 Bed confinement status; Z93.6 Other artificial openings of urinary tract status; Z88.0 Allergy status to penicillin; Z79.899 Other long term (current) drug therapy; Z87.442 Personal history of urinary calculi
CPT/HCPCS: 36415; 71045; 71250; 74176; 80053; 81001; 83605; 83735; 84134; 84145; 84443; 85025; 85610; 85730; 87040; 87070; 87077; 87088; 87186; 87324; 87449; 92616; 93005; 94760; 96361; 96365; 96367; 97110; 97161; 97530; 97535; 99285; A4315; A6209; A6213; J0696; J1956; J3370; J7030

== ENCOUNTER 2018-06-18 15:11 | Emergency (ER) | payer MEDICARE, MEDICAID ==
[~2018-06-18] VITALS: Ht 152.4 cm; Wt 50.0 kg
[2018-06-18] MEDS ORDERED: normal saline 1000ML IV soln IVB ONE (15:30)
[2018-06-18 16:00] LABS: BASOPHILS % (AUTO) 0.6 % (0-1); EOSINOPHILS # (AUTO) 0.3 X10'3 (0-0.9); EOSINOPHILS % (AUTO) 5.4 % (0-6); HEMATOCRIT 25.4 % (35.0-45.0); HEMOGLOBIN 8.5 g/dl (12.0-16.0); LYMPHOCYTES # (AUTO) 1.3 X10'3 (1.1-4.8); LYMPHOCYTES % (AUTO) 24.7 % (21-51); MEAN CORPUSCULAR HEMOGLOBIN 29.1 PG (27.0-31.0); MEAN CORPUSCULAR HGB CONC 33.3 % (33.0-36.5); MEAN CORPUSCULAR VOLUME 87.5 FL (78-98); MEAN PLATELET VOLUME 6.7 FL (7.4-10.4); MONOCYTES # (AUTO) 0.4 X10'3 (0-0.9); MONOCYTES % (AUTO) 7.1 % (2-12); NEUTROPHILS # (AUTO) 3.3 X10'3 (1.8-7.7); NEUTROPHILS % (AUTO) 62.2 % (42-75); PLATELET COUNT 225 X10'3 (140-440); RED CELL DISTRIBUTION WIDTH 16.9 % (11.5-14.5); WHITE BLOOD COUNT 5.3 X10'3 (4.5-11.0)
[2018-06-18 16:08] LABS: INR 1.1 INR; PROTHROMBIN TIME 10.9 SECONDS (9.0-12.0)
[2018-06-18 16:14] LABS: ALANINE AMINOTRANSFERASE 19 U/L (12-78); ALBUMIN 2.4 G/DL (3.4-5.0); ALBUMIN/GLOBULIN RATIO 0.6 (1.1-1.5); ALKALINE PHOSPHATASE 92 IU/L (46-116); ANION GAP 6 (8-16); ASPARTATE AMINO TRANSFERASE 11 U/L (10-37); BILIRUBIN,TOTAL 0.2 MG/DL (0.1-1.0); BLOOD UREA NITROGEN 31 MG/DL (7-18); BUN/CREATININE RATIO 21.1 (6.6-38.0); CALCIUM 8.8 MG/DL (8.5-10.1); CHLORIDE 107 MMOL/L (99-107); CREATININE 1.47 MG/DL (0.40-0.90); GLUCOSE 90 MG/DL (70-104); POTASSIUM 4.2 MMOL/L (3.5-5.1); SODIUM 140 MMOL/L (135-145); TOTAL CARBON DIOXIDE 27.3 MMOL/L (24-32); TOTAL PROTEIN 6.7 G/DL (6.4-8.2); eGFR 36 ML/MIN
[2018-06-18] MEDS ORDERED: iohexol 300 MG/1 ML 50ml polymer ONE (16:22)
[2018-06-18] MEDS ORDERED: LIDOcaine 1%/PF 5ML 10 MG/ML VIAL ONE (16:22)
[2018-06-18 16:25] VITALS: BP 133/83
[2018-06-18 16:42] VITALS: BP 146/92
[2018-06-18 18:28] VITALS: BP 126/62
== END 2018-06-18 20:24 ==
LOC: ER 15:12
DX: N99.528 Other complication of incontinent external stoma of urinary tract (principal); Z46.6 Encounter for fitting and adjustment of urinary device; F03.90 Unspecified dementia, unspecified severity, without behavioral disturbance, psychotic disturbance, mood disturbance, and anxiety; F12.90 Cannabis use, unspecified, uncomplicated; Z88.0 Allergy status to penicillin; Z79.899 Other long term (current) drug therapy
CPT/HCPCS: 36415; 50435; 80053; 85025; 85610; 99285; A6257; J2001; Q9967

== ENCOUNTER 2018-07-09 06:54 | Day surgery (SDC) | payer MEDICARE, MEDICAID ==
[2018-07-09 07:25] VITALS: BP 120/51
[2018-07-09] MEDS ORDERED: iohexol 300 MG/1 ML 50ml polymer ONE (09:04)
[2018-07-09 09:59] VITALS: BP 119/52
[2018-07-09 10:14] VITALS: BP 116/56
[2018-07-09 10:30] VITALS: BP 122/59
== END 2018-07-09 10:55 ==
LOC: SSTAY O 06:54
PROVIDERS: ATTEND Radiology Vascular & Interventional Radiology
DX: Z46.59 Encounter for fitting and adjustment of other gastrointestinal appliance and device (principal); E11.9 Type 2 diabetes mellitus without complications; E03.9 Hypothyroidism, unspecified; F32.9 Major depressive disorder, single episode, unspecified; F41.8 Other specified anxiety disorders; Z79.4 Long term (current) use of insulin; Z88.0 Allergy status to penicillin; Z86.69 Personal history of other diseases of the nervous system and sense organs; Z87.440 Personal history of urinary (tract) infections; Z72.89 Other problems related to lifestyle; Z79.2 Long term (current) use of antibiotics; Z87.01 Personal history of pneumonia (recurrent); Z86.14 Personal history of Methicillin resistant Staphylococcus aureus infection; Z93.6 Other artificial openings of urinary tract status; Z79.891 Long term (current) use of opiate analgesic; Z79.899 Other long term (current) drug therapy; Z98.890 Other specified postprocedural states
CPT/HCPCS: 76000; Q9967

== ENCOUNTER 2018-07-14 02:07 | Inpatient (IN) | payer MEDICARE, MEDICAID ==
[~2018-07-14] VITALS: Ht 152.4 cm; Wt 62.9 kg
[2018-07-14] MEDS ORDERED: levoFLOXACIN-Levaquin 750MG/D5 150 ML IV STA (02:11)
[2018-07-14] MEDS ORDERED: normal saline 1000ML IV soln IV ONE (02:15)
[2018-07-14] MEDS ORDERED: albuterol 2.5 MG/3 ML nebule CONTNEB PRN (02:15)
[2018-07-14 02:25] LABS: BASOPHILS # (AUTO) 0.1 X10'3 (0-0.2); BASOPHILS % (AUTO) 0.3 % (0-1); EOSINOPHILS # (AUTO) 0.5 X10'3 (0-0.9); EOSINOPHILS % (AUTO) 2.3 % (0-6); HEMATOCRIT 28.7 % (35.0-45.0); HEMOGLOBIN 9.6 g/dl (12.0-16.0); LYMPHOCYTES # (AUTO) 2.1 X10'3 (1.1-4.8); LYMPHOCYTES % (AUTO) 8.6 % (21-51); MEAN CORPUSCULAR HEMOGLOBIN 28.9 PG (27.0-31.0); MEAN CORPUSCULAR HGB CONC 33.3 % (33.0-36.5); MEAN CORPUSCULAR VOLUME 86.6 FL (78-98); MONOCYTES # (AUTO) 0.5 X10'3 (0-0.9); NEUTROPHILS % (AUTO) 86.8 % (42-75); PLATELET COUNT 425 X10'3 (140-440); RED BLOOD COUNT 3.31 X10'6 (4.20-5.60); RED CELL DISTRIBUTION WIDTH 18.6 % (11.5-14.5); WHITE BLOOD COUNT 24.2 X10'3 (4.5-11.0)
[2018-07-14 02:30] LABS: ABG BASE EXCESS -10.5 mmol/L (-2.0-3.0); ABG HCO3 16.6 mmol/L (22.0-26.0); ABG OXYGEN SATURATION 98.5 % (95-98); ABG PCO2 (T) 42.5 mmHg (32.0-45.0); ABG PO2 (T) 166.7 mmHg (83-108); ALLEN'S TEST Positive; FCOHb 0.3 % (0.5-1.5); FMetHb 0.2 % (0.3-1.12); MINUTE VOLUME 11 L/min; PATIENT TEMPERATURE 37.2; RESPIRATORY RATE 12 b/min; RESPIRATORY RATE (OBSERVED) 21 b/min; TIDAL VOLUME 627 mL; TOTAL HEMOGLOBIN 8.9 G/dl (12.0-16.0)
[2018-07-14 02:36] LABS: INR 1.1 INR; PARTIAL THROMBOPLASTIN TIME 30 SECONDS (22-32); PROTHROMBIN TIME 11.3 SECONDS (9.0-12.0)
[2018-07-14 02:39] LABS: ANION GAP 17 (8-16); BILIRUBIN,TOTAL 0.3 MG/DL (0.1-1.0); BLOOD UREA NITROGEN 44 MG/DL (7-18); BUN/CREATININE RATIO 23.7 (6.6-38.0); CALCIUM 8.8 MG/DL (8.5-10.1); CHLORIDE 104 MMOL/L (99-107); CREATININE 1.86 MG/DL (0.40-0.90); GLUCOSE 291 MG/DL (70-104); POTASSIUM 4.1 MMOL/L (3.5-5.1); SODIUM 140 MMOL/L (135-145); TOTAL CARBON DIOXIDE 19.1 MMOL/L (24-32); eGFR 28 ML/MIN
[2018-07-14 02:40] LABS: ALANINE AMINOTRANSFERASE 47 U/L (12-78); ALBUMIN 2.7 G/DL (3.4-5.0); ALBUMIN/GLOBULIN RATIO 0.5 (1.1-1.5); ALKALINE PHOSPHATASE 124 IU/L (46-116); ASPARTATE AMINO TRANSFERASE 27 U/L (10-37); TOTAL PROTEIN 7.9 G/DL (6.4-8.2)
[2018-07-14 03:09] LABS: TOTAL CELLS COUNTED 100
[2018-07-14 03:10] LABS: ANISOCYTOSIS 2+; PLATELET ESTIMATE NORMAL; TOXIC GRANULATION 1+
[2018-07-14 03:11] LABS: POLYCHROMASIA FEW; SPHEROCYTES 1+
[2018-07-14] MEDS ORDERED: acetaminophen 325mg tablet PO PRN ×3 (03:25→03:30)
[2018-07-14] MEDS ORDERED: ondansetron/PF 4mg/2ml inj IV PRN (03:25)
[2018-07-14] MEDS ORDERED: mag hydrox/Alum hydrox/simeth 30ml oral suspension PO PRN (03:25)
[2018-07-14] MEDS ORDERED: magnesium hydroxide 30ml (MOM) UD suspension PO PRN ×2 (03:25→03:30)
[2018-07-14] MEDS ORDERED: morphine 2 MG/ML inj. syringe IV PRN ×2 (03:25)
[2018-07-14 03:28] LABS: CLARITY,URINE CLOUDY (Clear); COLOR,URINE YELLOW (Yellow); GLUCOSE, URINE 250 mg/dl (Neg); KETONES,URINE NEGATIVE (Neg); LEUKOCYTE ESTERASE ,URINE LARGE (Neg); NITRITES, URINE NEGATIVE (Neg); OCCULT BLOOD,URINE LARGE (Neg); PROTEIN,URINE 30 mg/dl (Neg); UROBILINOGEN,URINE 0.2 E.U/dL (0.2-1.0)
[2018-07-14] MEDS ORDERED: LORazepam 2 mg/ml vial IV PRN (03:35)
[2018-07-14 03:36] LABS: UA COLLECTION TYPE FOLEY CATH
[2018-07-14 03:37] LABS: RBC,URINE TNTC /HPF (0-2); WBC,URINE TNTC /HPF (0-4)
[2018-07-14 03:38] LABS: BACTERIA,URINE 4+ /HPF (Neg); MUCUS STRANDS MODERATE /LPF (Neg); SQUAMOUS EPITHELIAL CELL,UR FEW /LPF (FEW); TRANSITIONAL EPI CELLS,URINE FEW /HPF
[2018-07-14] MEDS ORDERED: cefepime 2gm inj IV SCH (04:00)
[2018-07-14] MEDS: CEFEPIME 2 GM in NS 100ml IV.SOLN 100 ML IV SCH ×2 (04:06→17:28)
[2018-07-14 04:26] LABS: CLARITY,URINE CLOUDY (Clear); COLOR,URINE YELLOW (Yellow); GLUCOSE, URINE NEGATIVE (Neg); KETONES,URINE NEGATIVE (Neg); LEUKOCYTE ESTERASE ,URINE LARGE (Neg); NITRITES, URINE NEGATIVE (Neg); OCCULT BLOOD,URINE LARGE (Neg); PROTEIN,URINE >=300 mg/dl (Neg); UROBILINOGEN,URINE 0.2 E.U/dL (0.2-1.0)
[2018-07-14 04:32] LABS: UA COLLECTION TYPE OTHER
[2018-07-14 04:34] LABS: BACTERIA,URINE 3+ /HPF (Neg); RBC,URINE TNTC /HPF (0-2); SQUAMOUS EPITHELIAL CELL,UR FEW /LPF (FEW); WBC,URINE TNTC /HPF (0-4)
[2018-07-14 04:35] LABS: RENAL CELLS, URINE FEW /HPF; TRANSITIONAL EPI CELLS,URINE FEW /HPF
[2018-07-14 04:38] LABS: HYALINE CASTS 0-3 /LPF (NEGATIVE); MUCUS STRANDS FEW /LPF (Neg); YEAST FEW /HPF (NEGATIVE)
[2018-07-14 05:33] VITALS: BP 103/58
[2018-07-14] MEDS: vancomycin/NS 1 GM ADD-VANTAGE 250 ML IV SCH (05:35)
[2018-07-14] MEDS: normal saline 1000ml 1,000 ML IV SCH ×3 (05:35→23:24)
[2018-07-14 07:00] VITALS: BP 118/63
[2018-07-14] MEDS ORDERED: VITC PO SCH (08:00)
[2018-07-14] MEDS ORDERED: CRAN PO SCH (08:00)
[2018-07-14] MEDS ORDERED: FOS PO SCH (08:00)
[2018-07-14] MEDS ORDERED: BROMELN PO SCH (08:00)
[2018-07-14] MEDS ORDERED: MANNOSE PO SCH (08:00)
[2018-07-14] MEDS ORDERED: dextrose ORAL solution 15 GM/59 ML bottle PO PRN ×2 (08:30)
[2018-07-14] MEDS ORDERED: MESSAGE TO PHARMACY PO ONE (08:30)
[2018-07-14] MEDS ORDERED: dextrose 50%-water 50ml dispensing syringe IV PRN ×2 (08:30)
[2018-07-14] MEDS ORDERED: glucagon, human recombinant 1mg kit SUBCUT PRN (08:30)
[2018-07-14] MEDS ORDERED: insulin Lispro (HumaLOG) vial - multi-dose SQ SCH (08:30)
[2018-07-14] MEDS: calcium carbonate/vitamin D3 tablet PO SCH ×2 (08:37→19:55)
[2018-07-14] MEDS: famotidine 20mg tablet PO SCH ×2 (08:37→19:55)
[2018-07-14] MEDS: ascorbic acid 500mg tablet PO SCH (08:37)
[2018-07-14] MEDS: multivitamins, therapeutics tablet PO SCH (08:38)
[2018-07-14] MEDS: levoTHYROXINE 25mcg tablet PO SCH (08:38)
[2018-07-14] MEDS: ferrous sulfate 325mg tablet PO SCH ×2 (08:38→19:55)
[2018-07-14] MEDS: heparin, porcine 5000 units/ml vial SQ SCH ×2 (08:39→19:56)
[2018-07-14] MEDS: topiramate 100mg tablet PO SCH ×2 (08:39→19:55)
[2018-07-14] MEDS: polyethylene glycol 3350 17gm powd pack PO SCH (08:40)
[2018-07-14 08:45] LABS: ABG BASE EXCESS -7.2 mmol/L (-2.0-3.0); ABG HCO3 16.7 mmol/L (22.0-26.0); ABG OXYGEN SATURATION 98.4 % (95-98); ABG PCO2 (T) 27.7 mmHg (32.0-45.0); ABG PH (T) 7.398 (7.350-7.450); ABG PO2 (T) 142.6 mmHg (83-108); ALLEN'S TEST Positive; FCOHb 0.2 % (0.5-1.5); FMetHb 0.4 % (0.3-1.12); FO2Hb 97.8 % (94-100); RESPIRATORY RATE 12 b/min; RESPIRATORY RATE (OBSERVED) 19 b/min; TIDAL VOLUME 259 mL; TOTAL HEMOGLOBIN 8.3 G/dl (12.0-16.0)
[2018-07-14] MEDS ORDERED: adenosine 3mg/ml 2ml vial IV ONE (10:00)
[2018-07-14 11:00] VITALS: BP 116/71
[2018-07-14 15:00] VITALS: BP 139/49
[2018-07-14] MEDS: nystatin/triamcinolone cream 15gm TP SCH ×2 (17:11→20:01)
[2018-07-14 19:00] VITALS: BP 114/48
[2018-07-14] MEDS: insulin glargine (Lantus) pen - multi-dose SQ SCH (19:56)
[2018-07-14] MEDS ORDERED: temazepam 15mg capsule PO PRN (21:00)
[2018-07-14 23:00] VITALS: BP 118/97
[2018-07-15] VITALS (15 sets, daily range): BP systolic 100–130; BP diastolic 35–68
[2018-07-15] MEDS: CEFEPIME 2 GM in NS 100ml IV.SOLN 100 ML IV SCH ×2 (04:30→16:37)
[2018-07-15] MEDS: vancomycin/NS 1 GM ADD-VANTAGE 250 ML IV SCH (06:39)
[2018-07-15 07:52] LABS: ALBUMIN 1.9 G/DL (3.4-5.0); ANION GAP 17 (8-16); BLOOD UREA NITROGEN 30 MG/DL (7-18); BUN/CREATININE RATIO 19.2 (6.6-38.0); CALCIUM 9.2 MG/DL (8.5-10.1); CHLORIDE 116 MMOL/L (99-107); CREATININE 1.56 MG/DL (0.40-0.90); GLUCOSE 80 MG/DL (70-104); POTASSIUM 3.5 MMOL/L (3.5-5.1); SODIUM 147 MMOL/L (135-145); eGFR 34 ML/MIN
[2018-07-15] MEDS: heparin, porcine 5000 units/ml vial SQ SCH ×2 (08:00→19:26)
[2018-07-15] MEDS ORDERED: levoFLOXACIN-Levaquin 500mg/D5 100 ML IV SCH (08:00)
[2018-07-15 08:05] LABS: TOTAL CARBON DIOXIDE 14.3 MMOL/L (24-32)
[2018-07-15] MEDS: nystatin/triamcinolone cream 15gm TP SCH ×3 (08:30→19:27)
[2018-07-15] MEDS: multivitamins, therapeutics tablet PO SCH (08:30)
[2018-07-15] MEDS: ferrous sulfate 325mg tablet PO SCH ×2 (08:32→19:27)
[2018-07-15] MEDS: polyethylene glycol 3350 17gm powd pack PO SCH (08:32)
[2018-07-15] MEDS: famotidine 20mg tablet PO SCH ×2 (08:32→19:27)
[2018-07-15] MEDS: topiramate 100mg tablet PO SCH ×2 (08:32→19:27)
[2018-07-15] MEDS: calcium carbonate/vitamin D3 tablet PO SCH ×2 (08:32→19:27)
[2018-07-15] MEDS: levoTHYROXINE 25mcg tablet PO SCH (08:32)
[2018-07-15] MEDS: ascorbic acid 500mg tablet PO SCH (08:32)
[2018-07-15 09:30] LABS: BASOPHILS % (AUTO) 0.2 % (0-1); EOSINOPHILS % (AUTO) 0.6 % (0-6); LYMPHOCYTES # (AUTO) 0.6 X10'3 (1.1-4.8); MEAN CORPUSCULAR HEMOGLOBIN 28.9 PG (27.0-31.0); MEAN CORPUSCULAR HGB CONC 33.6 % (33.0-36.5); MEAN CORPUSCULAR VOLUME 85.9 FL (78-98); MEAN PLATELET VOLUME 7.4 FL (7.4-10.4); MONOCYTES # (AUTO) 0.3 X10'3 (0-0.9); NEUTROPHILS # (AUTO) 5.8 X10'3 (1.8-7.7); NEUTROPHILS % (AUTO) 86.2 % (42-75); PLATELET COUNT 191 X10'3 (140-440); RED BLOOD COUNT 2.26 X10'6 (4.20-5.60); RED CELL DISTRIBUTION WIDTH 18.9 % (11.5-14.5); WHITE BLOOD COUNT 6.7 X10'3 (4.5-11.0)
[2018-07-15 09:33] LABS: HEMATOCRIT 19.4 % (35.0-45.0); HEMOGLOBIN 6.5 g/dl (12.0-16.0)
[2018-07-15 10:00] LABS: ANISOCYTOSIS 2+; MICROCYTOSIS 1+; PLATELET ESTIMATE NORMAL; SPHEROCYTES 1+
[2018-07-15] MEDS: sodium bicarbonate (8.4%) inj. 100 MEQ in dextrose 5%-water 1,000 ML IV SCH ×2 (10:29→20:10)
[2018-07-15] MEDS: insulin glargine (Lantus) pen - multi-dose SQ SCH (21:00)
[2018-07-15 21:55] LABS: MEAN PLATELET VOLUME 7.3 FL (7.4-10.4); PLATELET COUNT 215 X10'3 (140-440); WHITE BLOOD COUNT 7.1 X10'3 (4.5-11.0)
[2018-07-15 22:02] LABS: ANION GAP 14 (8-16); BLOOD UREA NITROGEN 28 MG/DL (7-18); BUN/CREATININE RATIO 18.7 (6.6-38.0); CALCIUM 8.7 MG/DL (8.5-10.1); CHLORIDE 112 MMOL/L (99-107); GLUCOSE 90 MG/DL (70-104); HEMATOCRIT 27.4 % (35.0-45.0); HEMOGLOBIN 9.1 g/dl (12.0-16.0); MEAN CORPUSCULAR HEMOGLOBIN 28.8 PG (27.0-31.0); MEAN CORPUSCULAR HGB CONC 33.4 % (33.0-36.5); MEAN CORPUSCULAR VOLUME 86.1 FL (78-98); POTASSIUM 3.2 MMOL/L (3.5-5.1); RED BLOOD COUNT 3.18 X10'6 (4.20-5.60); RED CELL DISTRIBUTION WIDTH 16.3 % (11.5-14.5); SODIUM 145 MMOL/L (135-145); TOTAL CARBON DIOXIDE 18.7 MMOL/L (24-32); eGFR 35 ML/MIN
[2018-07-16] VITALS (7 sets, daily range): BP systolic 111–131; BP diastolic 47–63
[2018-07-16 03:06] LABS: BASOPHILS % (AUTO) 0.3 % (0-1); EOSINOPHILS # (AUTO) 0.2 X10'3 (0-0.9); EOSINOPHILS % (AUTO) 2.8 % (0-6); HEMATOCRIT 25.7 % (35.0-45.0); HEMOGLOBIN 8.6 g/dl (12.0-16.0); LYMPHOCYTES % (AUTO) 16.6 % (21-51); MEAN CORPUSCULAR HEMOGLOBIN 28.9 PG (27.0-31.0); MEAN CORPUSCULAR HGB CONC 33.5 % (33.0-36.5); MEAN CORPUSCULAR VOLUME 86.3 FL (78-98); MEAN PLATELET VOLUME 7.2 FL (7.4-10.4); MONOCYTES # (AUTO) 0.4 X10'3 (0-0.9); NEUTROPHILS # (AUTO) 4.6 X10'3 (1.8-7.7); NEUTROPHILS % (AUTO) 74.3 % (42-75); PLATELET COUNT 211 X10'3 (140-440); RED BLOOD COUNT 2.98 X10'6 (4.20-5.60); RED CELL DISTRIBUTION WIDTH 17.7 % (11.5-14.5); WHITE BLOOD COUNT 6.1 X10'3 (4.5-11.0)
[2018-07-16 03:07] LABS: ALBUMIN 1.9 G/DL (3.4-5.0); ANION GAP 11 (8-16); BLOOD UREA NITROGEN 27 MG/DL (7-18); BUN/CREATININE RATIO 17.2 (6.6-38.0); CALCIUM 8.5 MG/DL (8.5-10.1); CHLORIDE 113 MMOL/L (99-107); CREATININE 1.57 MG/DL (0.40-0.90); GLUCOSE 96 MG/DL (70-104); SODIUM 146 MMOL/L (135-145); TOTAL CARBON DIOXIDE 22.3 MMOL/L (24-32); eGFR 33 ML/MIN
[2018-07-16 03:17] LABS: POTASSIUM 2.9 MMOL/L (3.5-5.1)
[2018-07-16] MEDS ORDERED: potassium Cl 40MEQ/NS 500ml 500 ML IV PRN (03:30)
[2018-07-16] MEDS ORDERED: potassium Cl 20 mEq SR tablet PO PRN (03:30)
[2018-07-16] MEDS: potassium Cl 40MEQ/NS 500ml 500 ML IV PRN ×2 (03:58→08:56)
[2018-07-16] MEDS: CEFEPIME 2 GM in NS 100ml IV.SOLN 100 ML IV SCH ×2 (04:08→16:40)
[2018-07-16] MEDS: sodium bicarbonate (8.4%) inj. 100 MEQ in dextrose 5%-water 1,000 ML IV SCH ×2 (04:08→16:44)
[2018-07-16] MEDS: vancomycin/NS 1 GM ADD-VANTAGE 250 ML IV SCH (06:47)
[2018-07-16] MEDS: levoTHYROXINE 25mcg tablet PO SCH (07:29)
[2018-07-16] MEDS: polyethylene glycol 3350 17gm powd pack PO SCH (07:29)
[2018-07-16] MEDS: famotidine 20mg tablet PO SCH ×2 (07:29→21:18)
[2018-07-16] MEDS: ferrous sulfate 325mg tablet PO SCH ×2 (07:29→20:00)
[2018-07-16] MEDS: topiramate 100mg tablet PO SCH ×2 (07:29→21:17)
[2018-07-16] MEDS: ascorbic acid 500mg tablet PO SCH (07:29)
[2018-07-16] MEDS: calcium carbonate/vitamin D3 tablet PO SCH ×2 (07:29→20:00)
[2018-07-16] MEDS: multivitamins, therapeutics tablet PO SCH (07:30)
[2018-07-16] MEDS: nystatin/triamcinolone cream 15gm TP SCH ×3 (07:30→21:00)
[2018-07-16] MEDS: heparin, porcine 5000 units/ml vial SQ SCH ×2 (08:00→21:17)
[2018-07-16] MEDS ORDERED: levoFLOXACIN-Levaquin 750MG/D5 150 ML IV SCH (08:00)
[2018-07-16] MEDS: K and/or MAG REPLACEMENT MC SCH (08:00)
[2018-07-16 15:10] LABS: ALANINE AMINOTRANSFERASE 25 U/L (12-78); ALBUMIN 1.8 G/DL (3.4-5.0); ALBUMIN/GLOBULIN RATIO 0.4 (1.1-1.5); ALKALINE PHOSPHATASE 79 IU/L (46-116); ANION GAP 10 (8-16); ASPARTATE AMINO TRANSFERASE 13 U/L (10-37); BILIRUBIN,TOTAL 0.5 MG/DL (0.1-1.0); BLOOD UREA NITROGEN 21 MG/DL (7-18); BUN/CREATININE RATIO 15.8 (6.6-38.0); CALCIUM 8.2 MG/DL (8.5-10.1); CHLORIDE 113 MMOL/L (99-107); CREATININE 1.33 MG/DL (0.40-0.90); GLUCOSE 96 MG/DL (70-104); POTASSIUM 3.5 MMOL/L (3.5-5.1); SODIUM 144 MMOL/L (135-145); TOTAL CARBON DIOXIDE 20.7 MMOL/L (24-32); TOTAL PROTEIN 5.9 G/DL (6.4-8.2); eGFR 41 ML/MIN
[2018-07-16 15:14] LABS: BASOPHILS % (AUTO) 0.5 % (0-1); EOSINOPHILS % (AUTO) 4.4 % (0-6); HEMATOCRIT 25.9 % (35.0-45.0); HEMOGLOBIN 8.8 g/dl (12.0-16.0); LYMPHOCYTES # (AUTO) 0.8 X10'3 (1.1-4.8); LYMPHOCYTES % (AUTO) 15.9 % (21-51); MEAN CORPUSCULAR HEMOGLOBIN 29.5 PG (27.0-31.0); MEAN CORPUSCULAR VOLUME 86.7 FL (78-98); MEAN PLATELET VOLUME 7.3 FL (7.4-10.4); MONOCYTES % (AUTO) 6.1 % (2-12); NEUTROPHILS # (AUTO) 3.9 X10'3 (1.8-7.7); NEUTROPHILS % (AUTO) 73.1 % (42-75); PLATELET COUNT 190 X10'3 (140-440); RED BLOOD COUNT 2.99 X10'6 (4.20-5.60); RED CELL DISTRIBUTION WIDTH 16.4 % (11.5-14.5); WHITE BLOOD COUNT 5.2 X10'3 (4.5-11.0)
[2018-07-16 15:15] LABS: EOSINOPHILS # (AUTO) 0.2 X10'3 (0-0.9); MONOCYTES # (AUTO) 0.3 X10'3 (0-0.9)
[2018-07-16] MEDS: insulin glargine (Lantus) pen - multi-dose SQ SCH (21:00)
[2018-07-16] MEDS: lactobacillus rhamnosus 10,000 MMU CELLS/CAPSULE PO SCH (21:17)
[2018-07-17 03:00] VITALS: BP 102/41
[2018-07-17] MEDS: sodium bicarbonate (8.4%) inj. 100 MEQ in dextrose 5%-water 1,000 ML IV SCH ×3 (03:54→22:52)
[2018-07-17] MEDS: CEFEPIME 2 GM in NS 100ml IV.SOLN 100 ML IV SCH ×2 (04:05→15:29)
[2018-07-17] MEDS ORDERED: VANCOMYCIN LEVEL IV NR (05:30)
[2018-07-17 06:00] VITALS: BP 101/65
[2018-07-17] MEDS: vancomycin/NS 1 GM ADD-VANTAGE 250 ML IV SCH (06:00)
[2018-07-17 06:18] LABS: ALBUMIN 1.9 G/DL (3.4-5.0); ANION GAP 9 (8-16); BLOOD UREA NITROGEN 18 MG/DL (7-18); CHLORIDE 112 MMOL/L (99-107); GLUCOSE 136 MG/DL (70-104); PREALBUMIN 15.6 MG/DL (19-36); SODIUM 145 MMOL/L (135-145); TOTAL CARBON DIOXIDE 23.8 MMOL/L (24-32); eGFR 35 ML/MIN
[2018-07-17 06:26] LABS: POTASSIUM 2.9 MMOL/L (3.5-5.1); VANCOMYCIN,TROUGH 23.4 UG/ML (6.0-14.0)
[2018-07-17 08:04] LABS: BASOPHILS % (AUTO) 0.4 % (0-1); EOSINOPHILS # (AUTO) 0.3 X10'3 (0-0.9); EOSINOPHILS % (AUTO) 5.3 % (0-6); HEMOGLOBIN 9.2 g/dl (12.0-16.0); LYMPHOCYTES % (AUTO) 20.4 % (21-51); MEAN CORPUSCULAR HEMOGLOBIN 29.6 PG (27.0-31.0); MEAN PLATELET VOLUME 7.7 FL (7.4-10.4); MONOCYTES # (AUTO) 0.4 X10'3 (0-0.9); MONOCYTES % (AUTO) 7.4 % (2-12); NEUTROPHILS # (AUTO) 3.3 X10'3 (1.8-7.7); NEUTROPHILS % (AUTO) 66.5 % (42-75); PLATELET COUNT 177 X10'3 (140-440); RED CELL DISTRIBUTION WIDTH 16.4 % (11.5-14.5)
[2018-07-17] MEDS: ascorbic acid 500mg tablet PO SCH (08:17)
[2018-07-17] MEDS: levoTHYROXINE 25mcg tablet PO SCH (08:17)
[2018-07-17] MEDS: lactobacillus rhamnosus 10,000 MMU CELLS/CAPSULE PO SCH ×2 (08:17→20:00)
[2018-07-17] MEDS: famotidine 20mg tablet PO SCH ×2 (08:17→20:00)
[2018-07-17] MEDS: calcium carbonate/vitamin D3 tablet PO SCH ×2 (08:17→20:00)
[2018-07-17] MEDS: potassium Cl 20 mEq SR tablet PO PRN ×2 (08:17→12:48)
[2018-07-17] MEDS: ferrous sulfate 325mg tablet PO SCH ×2 (08:18→20:00)
[2018-07-17] MEDS: topiramate 100mg tablet PO SCH ×2 (08:18→20:00)
[2018-07-17] MEDS: multivitamins, therapeutics tablet PO SCH (08:18)
[2018-07-17] MEDS: polyethylene glycol 3350 17gm powd pack PO SCH (08:18)
[2018-07-17] MEDS: K and/or MAG REPLACEMENT MC SCH (08:22)
[2018-07-17] MEDS: heparin, porcine 5000 units/ml vial SQ SCH ×2 (08:22→20:54)
[2018-07-17] MEDS: nystatin/triamcinolone cream 15gm TP SCH ×3 (09:23→22:56)
[2018-07-17 09:59] LABS: ANISOCYTOSIS 1+; PLATELET ESTIMATE NORMAL
[2018-07-17 10:00] LABS: POLYCHROMASIA FEW; SCHISTOCYTES FEW
[2018-07-17 11:00] VITALS: BP 100/43
[2018-07-17 12:06] LABS: OCCULT BLOOD STOOL POSITIVE (Neg)
[2018-07-17] MEDS ORDERED: potassium Cl oral solution 20 MEQ/15 ML PO PRN ×2 (13:17)
[2018-07-17 15:00] VITALS: BP 125/59
[2018-07-17 19:00] VITALS: BP 126/59
[2018-07-17] MEDS: vancomycin 125mg/5ml ORAL solution 5ml UD bottle PO SCH (20:00)
[2018-07-17] MEDS: sulfmethoxaz/trimethoprim inj 10 ML in dextrose 5%-water 240 ML IV SCH (20:54)
[2018-07-17] MEDS: potassium Cl 40MEQ/NS 500ml 500 ML IV PRN (20:55)
[2018-07-17] MEDS: insulin glargine (Lantus) pen - multi-dose SQ SCH (21:00)
[2018-07-17 23:00] VITALS: BP 118/57
[2018-07-18] MEDS: vancomycin 125mg/5ml ORAL solution 5ml UD bottle PO SCH ×3 (02:00→10:03)
[2018-07-18] MEDS: sulfmethoxaz/trimethoprim inj 10 ML in dextrose 5%-water 240 ML IV SCH ×2 (02:21→08:59)
[2018-07-18 03:00] VITALS: BP 126/57
[2018-07-18 05:50] LABS: BASOPHILS % (AUTO) 0.5 % (0-1); EOSINOPHILS # (AUTO) 0.3 X10'3 (0-0.9); EOSINOPHILS % (AUTO) 5.4 % (0-6); HEMATOCRIT 26.7 % (35.0-45.0); HEMOGLOBIN 9.3 g/dl (12.0-16.0); LYMPHOCYTES # (AUTO) 1.2 X10'3 (1.1-4.8); LYMPHOCYTES % (AUTO) 24.4 % (21-51); MEAN CORPUSCULAR HEMOGLOBIN 29.8 PG (27.0-31.0); MEAN CORPUSCULAR HGB CONC 34.9 % (33.0-36.5); MEAN CORPUSCULAR VOLUME 85.5 FL (78-98); MEAN PLATELET VOLUME 7.5 FL (7.4-10.4); MONOCYTES # (AUTO) 0.4 X10'3 (0-0.9); MONOCYTES % (AUTO) 7.8 % (2-12); NEUTROPHILS # (AUTO) 2.9 X10'3 (1.8-7.7); NEUTROPHILS % (AUTO) 61.9 % (42-75); PLATELET COUNT 157 X10'3 (140-440); RED BLOOD COUNT 3.12 X10'6 (4.20-5.60); RED CELL DISTRIBUTION WIDTH 17.1 % (11.5-14.5); WHITE BLOOD COUNT 4.8 X10'3 (4.5-11.0)
[2018-07-18 06:03] LABS: ALBUMIN 1.8 G/DL (3.4-5.0); ANION GAP 12 (8-16); BLOOD UREA NITROGEN 14 MG/DL (7-18); BUN/CREATININE RATIO 9.7 (6.6-38.0); CALCIUM 8.6 MG/DL (8.5-10.1); CHLORIDE 111 MMOL/L (99-107); CREATININE 1.45 MG/DL (0.40-0.90); GLUCOSE 114 MG/DL (70-104); POTASSIUM 4.3 MMOL/L (3.5-5.1); SODIUM 144 MMOL/L (135-145); TOTAL CARBON DIOXIDE 20.8 MMOL/L (24-32); eGFR 37 ML/MIN
[2018-07-18 06:54] VITALS: BP 126/101
[2018-07-18] MEDS: polyethylene glycol 3350 17gm powd pack PO SCH ×2 (08:00→10:05)
[2018-07-18] MEDS: topiramate 100mg tablet PO SCH ×2 (08:00→10:05)
[2018-07-18] MEDS: levoTHYROXINE 25mcg tablet PO SCH ×2 (08:00→10:04)
[2018-07-18] MEDS: K and/or MAG REPLACEMENT MC SCH (08:00)
[2018-07-18] MEDS: ferrous sulfate 325mg tablet PO SCH ×2 (08:00→10:05)
[2018-07-18] MEDS: ascorbic acid 500mg tablet PO SCH ×2 (08:00→10:05)
[2018-07-18] MEDS ORDERED: vancomycin inj. 750 MG in normal saline 250ml IV soln 250 ML IV SCH (08:00)
[2018-07-18] MEDS: famotidine 20mg tablet PO SCH ×2 (08:00→10:04)
[2018-07-18] MEDS ORDERED: fluconazole 100mg tablet PO SCH (08:00)
[2018-07-18] MEDS: multivitamins, therapeutics tablet PO SCH ×2 (08:00→10:03)
[2018-07-18] MEDS: calcium carbonate/vitamin D3 tablet PO SCH ×2 (08:00→10:03)
[2018-07-18] MEDS: lactobacillus rhamnosus 10,000 MMU CELLS/CAPSULE PO SCH ×2 (08:00→10:05)
[2018-07-18] MEDS: heparin, porcine 5000 units/ml vial SQ SCH (09:10)
[2018-07-18] MEDS: nystatin/triamcinolone cream 15gm TP SCH ×2 (09:10→13:42)
[2018-07-18] MEDS ORDERED: FLUC100T9 GT (10:45)
[2018-07-18] MEDS ORDERED: SULF1TAB49 PO (10:45)
[2018-07-18] MEDS ORDERED: VANC5VIA GT (10:45)
[2018-07-21] MEDS ORDERED: VANCOMYCIN LEVEL IV ONE (07:30)
== END 2018-07-18 14:00 | DRG 871 ==
LOC: ER 02:07 → ED HOLD 03:24 → PCU 3S 05:00
PROVIDERS: ADMIT Hospitalist; ATTEND Family Medicine
PROC: 5A09357 Assistance with Respiratory Ventilation, Less than 24 Consecutive Hours, Continuous Positive Airway Pressure (ICD-10-PCS; principal; 2018-07-14)
PROC: BW211ZZ Computerized Tomography (CT Scan) of Abdomen and Pelvis using Low Osmolar Contrast (ICD-10-PCS; 2018-07-14)
PROC: 30233N1 Transfusion of Nonautologous Red Blood Cells into Peripheral Vein, Percutaneous Approach (ICD-10-PCS; 2018-07-15)
DX: A41.9 Sepsis, unspecified organism (principal); J18.1 Lobar pneumonia, unspecified organism; J96.90 Respiratory failure, unspecified, unspecified whether with hypoxia or hypercapnia; G93.40 Encephalopathy, unspecified; E87.2 Acidosis; N17.9 Acute kidney failure, unspecified; N39.0 Urinary tract infection, site not specified; N82.3 Fistula of vagina to large intestine; D64.9 Anemia, unspecified; E03.9 Hypothyroidism, unspecified; F12.90 Cannabis use, unspecified, uncomplicated; G35 Multiple sclerosis; R21 Rash and other nonspecific skin eruption; R31.9 Hematuria, unspecified; R19.7 Diarrhea, unspecified; B96.20 Unspecified Escherichia coli [E. coli] as the cause of diseases classified elsewhere; R73.9 Hyperglycemia, unspecified; N18.9 Chronic kidney disease, unspecified; Z51.5 Encounter for palliative care; N20.0 Calculus of kidney; R65.20 Severe sepsis without septic shock; Y95 Nosocomial condition; Z66 Do not resuscitate; Z93.1 Gastrostomy status; Z93.6 Other artificial openings of urinary tract status; Z88.0 Allergy status to penicillin; Z79.899 Other long term (current) drug therapy; Z86.19 Personal history of other infectious and parasitic diseases
CPT/HCPCS: 36415; 36600; 71045; 74176; 80048; 80053; 80202; 81001; 82272; 82803; 82948; 83036; 83605; 83735; 84134; 84145; 84443; 84484; 85018; 85025; 85027; 85610; 85730; 86885; 86900; 86901; 86920; 87040; 87070; 87077; 87088; 87186; 92616; 93005; 94640; 94644; 94660; 94760; 96361; 96365; 99291; A4649; A6250; C1758; J0153; J0692; J1644; J1815; J1956; J3370; J3480; J3490; J7030; J7060; P9016

== ENCOUNTER 2018-08-01 07:08 | Emergency (ER) | payer MEDICARE, MEDICAID ==
[~2018-08-01] VITALS: Ht 157.5 cm; Wt 70.0 kg
[~2018-08-01 07:08] MED LIST changes: +FLUC100T9 GT; +VANC5VIA GT
[2018-08-01 08:24] VITALS: BP 115/48
[2018-08-01 08:48] LABS: CLARITY,URINE SLIGHTLY CLOUDY (Clear); COLOR,URINE YELLOW (Yellow); GLUCOSE, URINE NEGATIVE (Neg); KETONES,URINE NEGATIVE (Neg); LEUKOCYTE ESTERASE ,URINE LARGE (Neg); NITRITES, URINE NEGATIVE (Neg); OCCULT BLOOD,URINE LARGE (Neg); PH,URINE 6.5 (4.8-8.0); PROTEIN,URINE 100 mg/dl (Neg); UROBILINOGEN,URINE 0.2 E.U/dL (0.2-1.0)
[2018-08-01 08:51] LABS: UA COLLECTION TYPE OTHER
[2018-08-01 08:53] LABS: BACTERIA,URINE 1+ /HPF (Neg); MUCUS STRANDS NONE SEEN /LPF (Neg); SQUAMOUS EPITHELIAL CELL,UR NONE SEEN /LPF (FEW); WBC,URINE 30-50 /HPF (0-4)
[2018-08-01] MEDS ORDERED: iohexol 300 MG/1 ML 50ml polymer ONE (10:39)
== END 2018-08-01 21:49 | disposition home or self-care (01) ==
LOC: ER 07:09
DX: T83.032A Leakage of nephrostomy catheter, initial encounter (principal)
CPT/HCPCS: 76000; 81001; 87088; 99285; Q9967; 74425

== ENCOUNTER 2018-08-14 10:09 | Emergency (ER) | payer MEDICARE, MEDICAID ==
[~2018-08-14] VITALS: Ht 152.4 cm; Wt 54.5 kg
[2018-08-14] MEDS ORDERED: diatr meglu/diatrizoate 30ml oral sol.-(3 dose) bottle PO ONE (13:15)
[2018-08-14 14:45] VITALS: BP 133/68
== END 2018-08-14 14:50 ==
LOC: ER 10:09
DX: K94.23 Gastrostomy malfunction (principal); F12.90 Cannabis use, unspecified, uncomplicated; G35 Multiple sclerosis; Z98.890 Other specified postprocedural states; Z88.0 Allergy status to penicillin; Z79.899 Other long term (current) drug therapy
CPT/HCPCS: 74018; 99284; Q9963

== ENCOUNTER 2018-08-15 14:25 | Emergency (ER) | payer MEDICARE, MEDICAID ==
[~2018-08-15] VITALS: Ht 154.9 cm; Wt 54.5 kg
[2018-08-15 15:20] VITALS: BP 123/51
== END 2018-08-15 17:38 | disposition home or self-care (01) ==
LOC: ER 14:26
DX: G35 Multiple sclerosis (principal); F12.90 Cannabis use, unspecified, uncomplicated; Z98.890 Other specified postprocedural states; Z93.1 Gastrostomy status; Z79.899 Other long term (current) drug therapy; Z88.0 Allergy status to penicillin
CPT/HCPCS: 99283

== ENCOUNTER → 2018-08-15 | Emergency (ER) | payer MEDICARE, MEDICAID ==
[~2018-08-15] VITALS: Ht 160 cm; Wt 55.0 kg
[2018-08-15 09:03] VITALS: BP 122/69
== END | disposition home or self-care (01) ==
LOC: ER 06:58
DX: K94.23 Gastrostomy malfunction (principal); G35 Multiple sclerosis; F12.90 Cannabis use, unspecified, uncomplicated; Z98.890 Other specified postprocedural states; Z79.899 Other long term (current) drug therapy; Z88.0 Allergy status to penicillin
CPT/HCPCS: 99283

== ENCOUNTER 2018-08-28 10:28 | Emergency (ER) | payer MEDICARE, MEDICAID ==
[~2018-08-28] VITALS: Ht 170.2 cm; Wt 72.0 kg
[2018-08-28] MEDS ORDERED: diatrozoate meglu/diatrozoate sod (37% iodine) 120ML oral solution PO ONE (11:15)
[2018-08-28] MEDS ORDERED: diatr meglu/diatrizoate 30ml oral sol.-(3 dose) bottle PO ONE (11:20)
[2018-08-28] MEDS ORDERED: iohexol 300 MG/1 ML 50ml polymer ONE (14:20)
[2018-08-28 15:20] VITALS: BP 106/69
[2018-08-28 15:24] VITALS: BP 111/70
[2018-08-28 16:09] VITALS: BP 108/72
== END 2018-08-28 16:32 | disposition home or self-care (01) ==
LOC: ER 10:28
DX: K94.20 Gastrostomy complication, unspecified (principal); G35 Multiple sclerosis; Z98.890 Other specified postprocedural states; Z88.0 Allergy status to penicillin; Z79.899 Other long term (current) drug therapy
CPT/HCPCS: 49450; 99284; Q9963; Q9967; C1729; C1769